=== PATIENT | male | born 1950 | race Caucasian/White ===

== ENCOUNTER 2019-09-05 10:19 | Inpatient (IN) | payer MEDICARE ==
[2019-09-03 11:16] LABS: MICROSCOPIC NOT IND
[2019-09-03 11:18] LABS: BASOPHILS # (AUTO) 0.01 x10^3/uL (0-0.1); BASOPHILS % (AUTO) 0 % (0-1); EOSINOPHILS # (AUTO) 0.13 x10^3/uL (0-0.4); EOSINOPHILS % (AUTO) 3 % (1-7); LYMPHOCYTES # (AUTO) 1.23 x10^3/uL (1-3.4); LYMPHOCYTES % (AUTO) 29 % (22-44); MD NO; MEAN CORPUSCULAR HEMOGLOBIN 31.4 pg (27.5-34.5); MEAN CORPUSCULAR HGB CONC 33.8 g/dL (33.2-36.2); MEAN CORPUSCULAR VOLUME 92.8 fL (81-97); MEAN PLATELET VOLUME 8.3 fL (7.4-10.4); MONOCYTES # (AUTO) 0.47 x10^3/uL (0.2-0.8); MONOCYTES % (AUTO) 11 % (2-9); NEUTROPHILS # (AUTO) 2.46 x10^3/uL (1.8-6.8); NEUTROPHILS % (AUTO) 57 % (42-75); PLATELET COUNT 197 x10^3/uL (130-400); RED BLOOD COUNT 5.38 x10^6/uL (4.38-5.82)
[2019-09-03 11:20] LABS: CULTURE INDICATED? NO
[2019-09-03 11:26] LABS: INTERNATIONAL NORMALIZED RATIO 0.95 (0.93-1.1)
[2019-09-03 11:30] LABS: ALBUMIN 3.8 g/dL (3.4-5.0); ANION GAP 6 mmol/L (5-15); CHLORIDE 113 mmol/L (98-107)
[2019-09-03 11:35] LABS: ALANINE AMINOTRANSFERASE 25 U/L (12-78); ALKALINE PHOSPHATASE 89 U/L (45-117); BILIRUBIN,TOTAL 0.7 mg/dL (0.2-1.0); CREATININE 1.32 mg/dL (0.7-1.3); TOTAL PROTEIN 6.7 g/dL (6.4-8.2)
[~2019-09-05] VITALS: Ht 157.5 cm; Wt 73.5 kg
[~2019-09-05 10:19] MED LIST: BUPR150T73 PO; GABA300C10 PO; METH750T2 PO; OMEP-110 PO
[2019-09-05] MEDS ORDERED: LACTATED RINGERS 1,000 ML IV SCH (13:06)
[2019-09-05 13:20] VITALS: BP_SYST 147; BP_SYST 154; BP_DIAS 104; BP_DIAS 94
[2019-09-05] MEDS ORDERED: ACETAMINOPHEN 500 MG TABLET PO ONE (13:30)
[2019-09-05] MEDS ORDERED: MIDAZOLAM 1 MG/ML, 2ML ONE (14:54)
[2019-09-05] MEDS ORDERED: FENTANYL PF 250 MCG/5ML ONE (14:54)
[2019-09-05] MEDS ORDERED: FENTANYL PF 100 MCG/2ML ONE ×2 (14:54→19:10)
[2019-09-05] MEDS ORDERED: REMIFENTANIL 2 MG ONE (14:55)
[2019-09-05] MEDS ORDERED: PROPOFOL 50 ML ONE (15:14)
[2019-09-05] MEDS ORDERED: PROPOFOL 100 ML ONE (15:16)
[2019-09-05] MEDS ORDERED: HYDROmorphone 2 MG/ML, 1ML IVPush PRN (16:30)
[2019-09-05] MEDS ORDERED: PROMETHAZINE 25 MG/ML, 1ML IV PRN (16:30)
[2019-09-05] MEDS ORDERED: ONDANSETRON ODT 8 MG PO PRN (16:30)
[2019-09-05] MEDS ORDERED: LORazepam 2 MG/ML, 1ML IVPush PRN (16:30)
[2019-09-05] MEDS ORDERED: OXYcodone 5 MG/5 ML ORAL.SOL UDC PO PRN (16:30)
[2019-09-05] MEDS ORDERED: ONDANSETRON 2MG/ML, 2ML IV PRN (16:30)
[2019-09-05] MEDS ORDERED: FENTANYL PF 100 MCG/2ML IV PRN (16:30)
[2019-09-05] MEDS ORDERED: ONDANSETRON 2MG/ML, 2ML ONE (16:34)
[2019-09-05] MEDS ORDERED: SUCCINYLCHOLINE 20 MG/ML, 10ML ONE (16:34)
[2019-09-05] MEDS ORDERED: ROCURONIUM 10MG/ML,5ML ONE (16:34)
[2019-09-05] MEDS ORDERED: LIDOCAINE 4%, 4 ML SYR/CANN TP ONE (16:34)
[2019-09-05] MEDS ORDERED: CEFAZOLIN 1,000 MG ONE (16:34)
[2019-09-05] MEDS ORDERED: LIDOCAINE-MPF 2% ,5ML ONE (16:34)
[2019-09-05] MEDS ORDERED: DEXAMETHASONE 4 MG/ML, 1ML ONE (16:34)
[2019-09-05] MEDS ORDERED: BUPIVACAINE/PF-EPI 0.5% 1:200K INFIL ONE (17:18)
[2019-09-05] MEDS ORDERED: HYDROcodone/APAP 5/325 TABLET PO PRN (19:00)
[2019-09-05] MEDS ORDERED: SENNA/DOCUSATE TABLET PO PRN (19:00)
[2019-09-05] MEDS ORDERED: HYDROcodone/APAP 10/325 MG TABLET PO PRN (19:00)
[2019-09-05] MEDS ORDERED: CEFAZOLIN PMX 1GM/50ML 50 ML IVPB SCH (19:00)
[2019-09-05] MEDS ORDERED: CYCLOBENZAPRINE 10 MG TABLET PO PRN (19:00)
[2019-09-05] MEDS ORDERED: PROMETHAZINE 25 MG/ML, 1ML IM PRN (19:00)
[2019-09-05] MEDS ORDERED: methylPREDNISolone*ACETATE* 80 MG/ML IM ONE (19:00)
[2019-09-05] MEDS ORDERED: ONDANSETRON 2MG/ML, 2ML IVPush PRN (19:00)
[2019-09-05] MEDS ORDERED: morphine SULFATE 10 MG/ML, 1ML IVPush PRN (19:00)
[2019-09-05] MEDS ORDERED: PHARMACY MAY ADJ FOR RENAL FX MC PRN (19:00)
[2019-09-05] MEDS ORDERED: DIPHENHYDRAMINE 50 MG/ML, 1ML IVPush PRN (19:00)
[2019-09-05] MEDS ORDERED: MAGNESIUM HYDROXIDE 8%, 30ML UDC PO PRN (19:00)
[2019-09-05] MEDS ORDERED: hydrALAzine 20 MG/ML, 1ML ONE ×2 (19:03→19:39)
[2019-09-05] MEDS ORDERED: OXYcodone 5 MG/5 ML ORAL.SOL UDC ONE (19:03)
[2019-09-05] MEDS: hydrALAzine 20 MG/ML, 1ML IV PRN ×2 (19:10→19:38)
[2019-09-05] MEDS ORDERED: DIAZEPAM 5 MG/ML, 2ML ONE (19:57)
[2019-09-05] MEDS ORDERED: DIAZEPAM 5 MG/ML, 2ML IVPush PRN (20:00)
[2019-09-05] MEDS: SODIUM CHLORIDE FLUSH 10ML SYR IVF SCH (21:00)
[2019-09-05 21:15] VITALS: BP 116/80
[2019-09-05 21:21] VITALS: BP 142/79
[2019-09-05] MEDS: D5%-0.9% NACL+KCL 20MEQ 1,000 ML IV SCH (22:41)
[2019-09-05] MEDS: METHOCARBAMOL 750 MG TABLET PO PRN (22:41)
[2019-09-05] MEDS: BUPROPION SR 150 MG TABLET PO SCH (22:41)
[2019-09-05] MEDS: GABAPENTIN 300 MG CAPSULE PO SCH (22:41)
[2019-09-05] MEDS: OXYcodone/APAP 5/325MG TABLET PO PRN (23:36)
[2019-09-06 00:18] VITALS: BP 124/83
[2019-09-06] MEDS: CEFAZOLIN PMX 1GM/50ML 50 ML IVPB SCH ×2 (01:33→09:09)
[2019-09-06 03:51] VITALS: BP 116/78
[2019-09-06] MEDS: OXYcodone/APAP 5/325MG TABLET PO PRN ×4 (05:43→21:05)
[2019-09-06] MEDS: D5%-0.9% NACL+KCL 20MEQ 1,000 ML IV SCH ×2 (06:41→12:32)
[2019-09-06 07:11] VITALS: BP 121/75
[2019-09-06] MEDS: SODIUM CHLORIDE FLUSH 10ML SYR IVF SCH ×2 (09:00→21:00)
[2019-09-06] MEDS: BUPROPION SR 150 MG TABLET PO SCH ×2 (09:04→21:05)
[2019-09-06] MEDS: OMEPRAZOLE 20 MG CAPSULE.DR PO SCH (09:04)
[2019-09-06] MEDS: GABAPENTIN 300 MG CAPSULE PO SCH ×3 (09:04→21:05)
[2019-09-06 13:17] VITALS: BP_SYST 103; BP_SYST 155; BP_DIAS 65; BP_DIAS 72
[2019-09-06 18:32] VITALS: BP 122/65
[2019-09-06] MEDS: METHOCARBAMOL 750 MG TABLET PO PRN (21:08)
[2019-09-07] VITALS: BP 111/73
[2019-09-07] MEDS: D5%-0.9% NACL+KCL 20MEQ 1,000 ML IV SCH ×2 (01:00→11:23)
[2019-09-07] MEDS: OXYcodone/APAP 5/325MG TABLET PO PRN ×3 (01:32→11:32)
[2019-09-07 06:42] VITALS: BP 151/97
[2019-09-07] MEDS: BUPROPION SR 150 MG TABLET PO SCH (08:13)
[2019-09-07] MEDS: OMEPRAZOLE 20 MG CAPSULE.DR PO SCH (08:13)
[2019-09-07] MEDS: GABAPENTIN 300 MG CAPSULE PO SCH (08:13)
[2019-09-07] MEDS: SODIUM CHLORIDE FLUSH 10ML SYR IVF SCH (08:15)
[2019-09-07 12:08] VITALS: BP 147/94
[2019-09-07] MEDS ORDERED: METH750T2 PO (12:27)
[2019-09-07] MEDS ORDERED: OXYC-302 PO (12:27)
== END 2019-09-07 12:15 | disposition home or self-care (01) | DRG 472 ==
LOC: ORIP 12:23 → 4NE 20:24
PROVIDERS: ADMIT Neurological Surgery; ATTEND Neurological Surgery
PROC: 0RB30ZZ Excision of Cervical Vertebral Disc, Open Approach (ICD-10-PCS; 2019-09-05)
PROC: 4A11X4G Monitoring of Peripheral Nervous Electrical Activity, Intraoperative, External Approach (ICD-10-PCS; 2019-09-05)
PROC: 0RG20A0 Fusion of 2 or more Cervical Vertebral Joints with Interbody Fusion Device, Anterior Approach, Anterior Column, Open Approach (ICD-10-PCS; principal; 2019-09-05 16:00)
DX: M48.02 Spinal stenosis, cervical region (principal); G99.2 Myelopathy in diseases classified elsewhere; M43.12 Spondylolisthesis, cervical region; M50.10 Cervical disc disorder with radiculopathy, unspecified cervical region; M40.50 Lordosis, unspecified, site unspecified; M25.78 Osteophyte, vertebrae; F32.9 Major depressive disorder, single episode, unspecified; F41.9 Anxiety disorder, unspecified; Z81.8 Family history of other mental and behavioral disorders; Z82.0 Family history of epilepsy and other diseases of the nervous system
CPT/HCPCS: 36415; 71046; 72040; 76000; 80053; 81003; 85025; 85610; 85730; 93005; C1713; G0378; J0171; J0690; J1100; J2250; J2405; J2704; J3010; J3360; C1762; J0330; J0360; J1040; J1200; J3480